=== PATIENT | female | born 1965 | race Caucasian/White ===

== ENCOUNTER 2023-02-16 08:13 | Emergency (ER) | payer OTHER, SELFPAY ==
[2023-02-16 08:19] VITALS: BP 217/107; PULSE 81; RESP 18; TEMP 36.6; O2SAT 97; BMI 40.9
--- NOTE | 2023-02-16 08:22 | ED.GENADULT ---
HPI - General Adult General Chief complaint: Epistaxis Stated complaint: Nose bleed Time Seen by Provider: 02/16/23 08:22 Source: patient Mode of arrival: ambulatory Limitations: no limitations History of Present Illness HPI narrative: Patient is a 57 year old assigned female at with a history of HTN on medication presenting to the emergency department today with a recurrent right sided nose bleed. Patient states that this originally happened a few days ago, she was seen at [facility] where they cauterized a couple spots, it got better, and then this morning it began bleeding again. Patient denies any dizziness, lightheadedness, abdominal pain, nausea, vomiting, fever, chills, blurry vision, double vision, loss of vision, chest pain, difficulty breathing, shortness of breath, back pain, night sweats, pain with urination, increased urinary frequency, increased urinary urgency, blood in her urine or stool, syncope or a near syncopal episode, recent trauma or falls, bowel incontinence, bladder incontinence, bowel retention, bladder retention, or any other complaints at this time. Onset (ago): minute(s) Severity: mild Relieving factors: none Exacerbating factors: none Associated symptoms: denies other symptoms Treatments prior to arrival: none Related Data Previous Rx's Medication Instructions Recorded amoxicillin 875 mg-potassium 1 tab PO BID 7 days #14 tabs 02/16/23 clavulanate 125 mg tablet Allergies Allergy/AdvReac Type Severity Reaction Status Date / Time No Known Allergies Allergy Verified 02/16/23 08:18 Review of Systems Constitutional: Constitutional: Reports no additional constitutional complaints, Denies chills, Denies fever(s) and Denies night sweats Eyes: Eyes: Reports no additional eye complaints, Denies blurry vision, Denies change in vision, Denies diplopia, Denies eye discharge, Denies loss of vision and Denies eye pain ENT: Denies dizziness and Reports epistaxis Cardiovascular: Cardiovascular: Reports no additional cardiovascular complaints, Denies chest pain, Denies lightheadedness, Denies Loss of Consciousness and Denies dyspnea Respiratory: Respiratory: Reports no additional respiratory complaints and Denies dyspnea Gastrointestinal: Gastrointestinal: Reports no additional gastrointestinal complaints, Denies abdominal pain, Denies melena, Denies hematochezia, Denies change in bowel habits and Denies change in stool character Genitourinary: Genitourinary: Denies hematuria, Denies urinary frequency, Denies dysuria, Denies urinary incontinence, Denies urinary hesitancy and Denies urinary urgency Musculoskeletal: Musculoskeletal: Reports no additional musculoskeletal complaints, Denies numbness and Denies tingling Neurologic: Denies dizziness, Denies loss of vision, Denies numbness and Denies tingling Psychiatric: Psychiatric: Reports no additional psychiatric complaints Endocrine: Endocrine: Reports no additional endocrine complaints Hematologic/Lymphatic: Hematologic/Lymphatic: Reports no additional hematologic/lymphatic complaints Allergic/Immunologic: Allergic/Immunologic: Reports no additional allergic/immunologic complaints PMFSH Past Medical History Attestation statement: The following information was validated with the patient. Source: old records reviewed and nursing notes reviewed Social History Social History Alcohol intake: never Smoked in Last 30 Days: No Use of substances other than those prescribed or required for medical reasons: No Advance Directives: No Advance Directives Information Provided: Yes Patient : No Physical Exam ED Vital Signs: Vital Signs - 24 hr 02/16/23 08:19 Temperature 97.8 F Pulse Rate 81 Respiratory Rate 18 Blood Pressure 217/107 H Pulse Oximetry 97 Oxygen Delivery Method Room Air BMI result Body Mass Index 40.9 Const General: cooperative, no acute distress, alert and awake Nutritional Appearance: well nourished Orientation/consciousness: patient oriented x3 Limitations: no limitations HENMT Head: Yes normal to inspection and Yes atraumatic Ears: hearing grossly normal bilaterally and external ears normal General nose exam: Normal external nose present and Epistaxis present Face and sinus: Yes normal facial exam, No abrasion and No laceration Mouth: Normal oral and palatal mucosa present, no drooling and no muffled voice Eyes General: appearance normal, both eyes and all related structures Periorbital: periorbital findings normal Eyelids: Yes eyelids normal Conjunctivae: conjunctivae normal Pupils: Equal, round and reactive pupils present EOM: EOMs intact bilaterally Neck Neck: Yes normal visual inspection, Yes full ROM and Yes no lymphadenopathy Chest Chest palpation & inspection: normal inspection of the chest Resp Effort & Inspection: normal respiratory effort and able to speak in complete sentences GI Inspection: Yes normal to inspection Neuro General: patient oriented x3 and moves all extremities Cranial nerves: Yes Equal, round and reactive pupils present Cognition (Neuro): normal cognition Motor exam (neuro): 5/5 motor strength present throughout Sensory Exam: Normal double simultaneous stimulation for sensation Coordination: [id number] test normal Extrem General: Yes normal to inspection, Yes full ROM and Yes capillary refill normal Psych Appearance: grossly normal Mental Status: mental status grossly normal Affect: normal affect Attitude: cooperative Thought process: Normal thought process present Thought content: Normal thought content present Insight: Good insight present (Psych) Medications Administered Discontinued Medications Generic Name Dose Route Start Last Admin Trade Name Annalise PRN Reason Stop Dose Admin Cocaine HCl 4 ml 02/16/23 09:13 02/16/23 09:20 Cocaine Hcl 4 % 4 Ml Solution TOPICAL 02/16/23 09:14 4 ml ONCE ONE Administration Protocol Tranexamic Acid 500 mg 02/16/23 09:13 02/16/23 09:20 Tranexamic Acid 1,000 Mg/10 Ml Vial INTRANASAL 02/16/23 09:14 500 mg ONCE ONE Administration Procedures Epistaxis Control Time Out Performed: Yes Nostril: Yes right Nose prepped with: Yes cocaine 4% Direct inspection: Yes unable to visualize Direct inspection method: Yes otoscope Clots removed by: Yes manually Epistaxis treatment: Yes TXA soaked gauze Results of treatment: Yes bleeding controlled and Yes treatment well tolerated Complications: Yes none Medical Decision Making Medical Decision Making MDM Narrative: Patient is a 57 year old assigned female at with a history of HTN presenting to the emergency department today with a nose bleed. Patient's physical exam showed a bleeding right nare but was otherwise unremarkable. Patient was hypertensive however, she had not taken her morning medications. Patient was instructed to take her morning medications. I explained my physical exam findings to the patient. I answered all questions asked by the patient. Patient's right nare was packed with a TXA and cocaine soaked rhino rocket. I stressed the importance of the patient taking her medication as prescribed. I stressed the importance of the patient following up with her primary care provider and an ENT. I stressed the importance of the patient having her packing removed in 72 hours either by the ENT or by us here in the Emergency Department. I stressed the importance of the patient returning to the emergency department immediately if her symptoms were to worsen or if she were to develop any dizziness, shortness of breath, difficulty breathing, chest pain, blurry vision, loss of vision, nausea, vomiting, abdominal pain, fever, chills, back pain, or any other complaints. Patient verbalized agreement and understanding with this treatment plan and discharge. Differential Diagnosis Differential Diagnoses: The differential diagnosis associated with the presentation includes epistaxis, HTN Critical Care Time Critical Care Time Critical Care Time: Yes Total Critical Care Time: 30 Attestation: I spent 30 minutes of Critical Care Time with this patient. This does not include time spent on separately reported billable procedures. Discharge Plan Discharge Clinical Impression: Epistaxis Patient Disposition: Home, Self-Care Instructions: Nosebleed (ED) Additional Instructions: Follow up with your primary care provider and an ENT. Go to the ENT office in 3 days OR return to the emergency department for nasal packing removal. TAKE YOUR BLOOD PRESSURE MEDICATIONS AND ANTIBIOTICS. Return to the emergency department immediately if your symptoms worsen or if you develop any dizziness, shortness of breath, difficulty breathing, chest pain, blurry vision, loss of vision, nausea, vomiting, abdominal pain, fever, chills, back pain, or any other complaints. Prescriptions: New amoxicillin-pot clavulanate 875-125 mg tablet 1 tab PO BID 7 Days Qty: 14 0RF Referrals: [facility] [place] Family Medicine [Provider Group] (Call to establish and follow up with a primary care provider. If you already have a primary care provider, please follow up with them.) [facility] [place] Primary Care, Aline [Provider Group] (Call to establish and follow up with a primary care provider. If you already have a primary care provider, please follow up with them.) [facility] [place] Primary Care,Taya [Provider Group] (Call to establish and follow up with a primary care provider. If you already have a primary care provider, please follow up with them.) Sae Black [Physician] - (Call to establish and follow up with an ENT.) Stand Alone Forms: Work/School Release Interventions: ED Discharge Assessment Last Done: 02/16/23 10:47 Discharge Date/Time: 02/16/23 10:47 Print Language: [place]
[2023-02-16] MEDS: Cocaine HCl 4 % 4 ML SOLUTION TOPICAL (09:20)
[2023-02-16] MEDS: Tranexamic Acid 1,000 MG/10 ML VIAL 500 MG INTRANASAL (09:20)
== END 2023-02-16 10:47 | disposition home or self-care (01) ==
PROVIDERS: Emergency Provider Emergency Medicine Emergency Medical Services
DX: R04.0 Epistaxis (principal); I10 Essential (primary) hypertension
CPT/HCPCS: 99283; C9143